=== PATIENT | male | born 1965 | race Asian ===

== ENCOUNTER 2023-12-12 07:01 | Day surgery (SDC) | payer OTHER ==
[~2023-12-12] VITALS: Ht 165.1 cm; Wt 59.1 kg
[~2023-12-12 07:01] MED LIST: SODIUM CHLORIDE 0.9% 1,000 ML ONE
[2023-12-12] MEDS ORDERED: MIDAZOLAM HCL 2 MG/2 ML VIAL ONE (07:41)
[2023-12-12] MEDS ORDERED: FentaNYL CITRATE PF 100 MCG/2 ML VIAL ONE (07:41)
[2023-12-12] MEDS: SODIUM CHLORIDE 0.9% 1,000 ML IV ONE (08:12)
[2023-12-12] MEDS ORDERED: OMEP20 PO (08:36)
[2023-12-12] MEDS ORDERED: ROSU20TA73 PO (08:36)
[2023-12-12] MEDS ORDERED: FENO48TA12 PO (08:36)
[2023-12-12] MEDS ORDERED: IBUP-1492 PO (08:36)
[2023-12-12] MEDS ORDERED: AMLO-257 PO (08:36)
[2023-12-12] MEDS ORDERED: MONT-35 PO (08:36)
[2023-12-12 09:20] VITALS: PULSE 76; RESP 13; O2SAT 100
[2023-12-12] MEDS: MethylPREDNISolone SOD SUCC 125 MG/2 ML VIAL IVP ONE (09:59)
== END 2023-12-12 12:00 | disposition home or self-care (01) ==
LOC: SURGERY 07:01
PROVIDERS: ATTEND Internal Medicine Critical Care Medicine
DX: R05.3 Chronic cough (principal); J38.4 Edema of larynx; B37.0 Candidal stomatitis; R06.2 Wheezing; R91.8 Other nonspecific abnormal finding of lung field; R49.0 Dysphonia; R04.2 Hemoptysis; I11.9 Hypertensive heart disease without heart failure; M19.90 Unspecified osteoarthritis, unspecified site
CPT/HCPCS: 87206; 87101; 87220; 87070; 88108; 31623; 31624; 94640; 71045; 87015; J3010; J2250; J7030